=== PATIENT | female | born 1990 | race Two or more races ===

== ENCOUNTER 2020-03-27 10:36 | Emergency (ER) | payer MEDICAID, OTHER ==
[~2020-03-27] VITALS: Ht 149.9 cm; Wt 54.4 kg
[2020-03-27 11:03] VITALS: BP 108/87
[2020-03-27] MEDS ORDERED: KETOROLAC TROMETH 60MG/2ML VIAL IM ONE (12:30)
== END 2020-03-27 12:39 | disposition home or self-care (01) ==
LOC: ER 10:36
DX: S39.012A Strain of muscle, fascia and tendon of lower back, initial encounter (principal); S30.0XXA Contusion of lower back and pelvis, initial encounter; W01.0XXA Fall on same level from slipping, tripping and stumbling without subsequent striking against object, initial encounter; Y93.89 Activity, other specified; Y92.89 Other specified places as the place of occurrence of the external cause; Y99.8 Other external cause status
CPT/HCPCS: 72220; 96372; 99283; J1885